=== PATIENT | female | born 1955 | race Caucasian/White ===

== ENCOUNTER 2020-07-06 05:50 | Day surgery (SDC) | payer OTHER ==
[~2020-07-06 05:50] MED LIST: FENTANYL 2 MCG IJ; WELLBUTRIN SR100 MG PO
[2020-07-06] MEDS ORDERED: PERCOCET 5-3251 EACH PO (08:57)
== END 2020-07-06 12:20 | disposition home or self-care (01) ==
LOC: CIR.AMB 05:50
PROVIDERS: ATTEND Surgery
DX: E04.2 Nontoxic multinodular goiter (principal); Z20.822 Contact with and (suspected) exposure to COVID-19